=== PATIENT | female | born 1965 | race Caucasian/White ===

== ENCOUNTER 2025-01-21 11:04 | Emergency (ER) | payer OTHER ==
[~2025-01-21] VITALS: Ht 167.6 cm; Wt 84.4 kg
[2025-01-21] MEDS ORDERED: ONDANSETRON HCL/PF 4 MG/2 ML VIAL ONE (11:22)
[2025-01-21] MEDS ORDERED: HYDROMORPHONE 1 MG/1 ML DISP.SYRIN ONE (11:23)
[2025-01-21 11:40] LABS: PLATELET COUNT (AUTO) 381 K/uL (150-450); RED BLOOD CELL COUNT(AUTO) 5.01 MIL/uL (4.0-5.2); RED CELL DISTRIBUTION WIDTH 13.2 % (11.5-15.0); WHITE BLOOD COUNT (AUTO) 13.1 K/uL (4.3-11.0)
[2025-01-21] MEDS: ONDANSETRON HCL/PF 4 MG/2 ML VIAL IVP ONE (11:40)
[2025-01-21] MEDS: HYDROMORPHONE INJ 2 MG/ML DISP.SYRIN IV ONE (11:40)
[2025-01-21 11:46] LABS: CALCIUM, SERUM 9.0 mg/dL (8.5-10.1); CREATININE 0.7 mg/dL (0.6-1.3); SODIUM SERUM 143 mmol/L (136-145); UREA NITROGEN, BLOOD 17 mg/dL (7-18)
[2025-01-21] MEDS: IV NS 0.9% 500 ML BAG IV ONE (13:12)
[2025-01-21] MEDS ORDERED: hydrALAZINE HCL IV 20 MG VIAL ONE (13:14)
[2025-01-21] MEDS ORDERED: LORAZEPAM INJ 2 MG/ML VIAL ONE (13:15)
[2025-01-21] MEDS: hydrALAZINE HCL IV 20 MG VIAL IV ONE (13:25)
[2025-01-21] MEDS: LORAZEPAM INJ 2 MG/ML VIAL IV ONE (13:26)
[2025-01-21 13:53] VITALS: TEMP 98.3
[2025-01-21] MEDS ORDERED: METOCLOPRAMIDE HCL 10 MG/2 ML VIAL ONE (14:18)
[2025-01-21] MEDS: METOCLOPRAMIDE HCL 10 MG/2 ML VIAL IV ONE (14:25)
[2025-01-21] MEDS ORDERED: MAGNESIUM HYDROXIDE 30 ML UDC PO PRN (15:30)
[2025-01-21] MEDS ORDERED: LEVOFLOXACIN 500 MG /D5W 100ML 500 MG in PREMIX 1 EA IV SCH (15:30)
[2025-01-21] MEDS ORDERED: ONDANSETRON HCL/PF 4 MG/2 ML VIAL IVP PRN (15:30)
[2025-01-21] MEDS ORDERED: POTASSIUM CHLORIDE 20 MEQ TAB.PRT.SR PO ONE (15:30)
[2025-01-21] MEDS ORDERED: MAG HYDROX/AL HYDROX/SIMETH 30 ML UDC PO PRN (15:30)
[2025-01-21] MEDS ORDERED: ACETAMINOPHEN 325 MG TABLET PO PRN (15:30)
[2025-01-21] MEDS ORDERED: Z GUARD REMEDY 4 OZ OINT TP PRN (15:30)
[2025-01-21 16:00] VITALS: BP 164/77; O2SAT 100
[2025-01-21] MEDS ORDERED: hydrALAZINE HCL IV 20 MG VIAL IV PRN (16:00)
== END 2025-01-21 16:30 | disposition short-term general hospital (02) ==
LOC: ER 11:21
DX: G89.29 Other chronic pain (principal); M54.9 Dorsalgia, unspecified; R07.9 Chest pain, unspecified; I16.0 Hypertensive urgency; I10 Essential (primary) hypertension; E11.9 Type 2 diabetes mellitus without complications; F41.9 Anxiety disorder, unspecified; Z88.0 Allergy status to penicillin; Z88.2 Allergy status to sulfonamides; Z88.5 Allergy status to narcotic agent
CPT/HCPCS: 99285; 96374; 96375; 70450; 71045; 93005 ×2; 85025; 80048; 36415; 84484 ×2; J2060; J0360; J2765; J2405; J7040; J1171